=== PATIENT | male | born 1995 | race Two or more races ===

== ENCOUNTER 2017-06-27 22:19 | Emergency (ER) | payer SELFPAY ==
[~2017-06-27] VITALS: Ht 175.3 cm; Wt 81.6 kg
--- NOTE | 2017-06-27 22:30 | NUR ---
DR. WARREN IS AT THE BEDSIDE.
[2017-06-27] MEDS ORDERED: LIDOCAINE 1%-EPI 1:100,000 50 ML VIAL IJ ONE (22:37)
[2017-06-27] MEDS ORDERED: TDAP [DIPH/PERTUSSIS/TET] 0.5 ML VIAL IM ONE ×2 (22:37→23:00)
--- NOTE | 2017-06-27 22:39 | NUR ---
DR. GOLDEN AT BEDSIDE FOR LAC REPAIR
[2017-06-27] MEDS ORDERED: LORAZEPAM 1 MG TABLET ONE (22:51)
[2017-06-27] MEDS ORDERED: LIDOCAINE 1%-EPI 1:100,000 20 ML VIAL TP ONE (23:00)
[2017-06-27] MEDS ORDERED: LORAZEPAM 0.5 MG TABLET PO ONE (23:00)
--- NOTE | 2017-06-27 23:22 | NUR ---
PT'S MIDDLE FINGER WAS SUTURED, KERLEX, AND SPLINT. PT REQUEST MORE ATIVAN. DR. MILLER GAVE PT ANOTHER MEDICATION.
[2017-06-27] MEDS ORDERED: diphenhydrAMINE HCL 25 MG CAPSULE ONE (23:27)
[2017-06-27] MEDS ORDERED: diphenhydrAMINE HCL ELIX 25 MG/10 ML UDC PO ONE (23:30)
[2017-06-27 23:31] VITALS: BP 126/78
--- NOTE | 2017-06-27 23:31 | NUR ---
Patient discharged to home in stable condition. Written and verbal after care instructions given. Patient verbalizes understanding of instruction AND RX. PT AMBULATED OUT WITH A STEADY GAIT. PT'S FRIEND IS PICKING PT UP. VSS. PT WAS INSTRUCTED NOT TO DRIVE.
== END 2017-06-27 23:32 | disposition home or self-care (01) ==
LOC: ER 22:26
DX: S61.213A Laceration without foreign body of left middle finger without damage to nail, initial encounter (principal); W26.0XXA Contact with knife, initial encounter; Y93.89 Activity, other specified; Y92.89 Other specified places as the place of occurrence of the external cause; Y99.8 Other external cause status
CPT/HCPCS: 90715; A4606; A6402; J3490; Q0163; Z7610